=== PATIENT | male | born 1955 | race Caucasian/White ===

== ENCOUNTER → 2018-07-21 | Outpatient (CLI) | payer OTHER ==
[~2018-07-21] MED LIST: ALTACE10 MG PO; ASPIR 8181 MG PO; CARVEDILOL6.25 MG PO; CRESTOR20 MG PO; EPLERENONE25 MG PO; IBUPROFEN 600600 M1 PO; LANSOPRAZOLE30 MG PO; LASIX 20 MG TAB20 MG PO; LEVOTHYROXIN0.112 M1 PO; NORCO 5-325 TA1 EACH PO; PROBIOTIC1 EAC1 PO; TOPAMAX 25 MG T25 M1 PO; VALIUM5 MG PO
== END ==
LOC: CAT 10:41
DX: J32.0 Chronic maxillary sinusitis (principal)

== ENCOUNTER 2018-09-04 05:27 | Day surgery (SDC) | payer OTHER ==
[~2018-09-04] VITALS: Ht 175.3 cm; Wt 87.1 kg
[~2018-09-04 05:27] MED LIST changes: +BRILINTA90 MG PO; +COREG6.25 MG PO; +DEPAKOTE ER500 MG PO; +METFORMIN HCL500 MG PO; +MIDODRINE HCL2.5 M1 PO; +SYNTHROID112 MC1 PO; +TOPAMAX50 MG PO
[2018-09-04 11:24] VITALS: BP 135/80
--- NOTE | 2018-09-08 05:48 | O ---
[facility] [place] [address] OPERATIVE REPORT Name: REMI EMEYR Room #: DEP [facility].#: [id number] Admission: 09/04/18 Attend Phys: Eleazar Walton MD Discharge: 09/04/18 Date of : 51 Report #: [id number] THIS REPORT FOR: //name// CC: Farooq Walton DATE OF SERVICE: 09/04/2018 PREOPERATIVE DIAGNOSIS: Left nasolacrimal duct obstruction. POSTOPERATIVE DIAGNOSIS: Left nasolacrimal duct obstruction. PROCEDURE: Left endoscopic balloon dacryocystoplasty with silicone intubation and monocanalicular stent placement. SURGEON: Eleazar Walton MD. CUSTOMER SUCCESS INTERN: None. ANESTHESIA: General. COMPLICATIONS: None. 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 He presents today for a left endoscopic lacrimal outflow procedure in order to attempt to establish patent tear drainage. Informed consent was obtained to include but not limited to the potential risk for loss of vision, bleeding, infection, failure to improve the problem, and the potential need for further surgery or treatment. DESCRIPTION OF PROCEDURE: The patient was taken to the operating room where general anesthesia was administered. The left medial canthal area and the left lateral wall of the nose were then infiltrated with Xylocaine with epinephrine mixed with Marcaine and Wydase. The patient was subsequently prepped and draped in the usual sterile fashion. The left superior and inferior puncta were then dilated with a punctum dilator. A size 1 Grimaldo probe was then passed through the superior canalicular system down the stenosed nasolacrimal duct into the inferior meatus. The previously placed Afrin-soaked cottonoids were removed from the nose. The nasal vault was then inspected with the video endoscope. The inferior turbinate was deviated medially with the blunt end of [place] periosteal elevator, which allowed access to the inferior recess, which showed the Grimaldo probe in the proper location in the inferior meatus. A size 2 Grimaldo probe was similarly passed through the same tract. A 3 x 15 mm Lacricatheter [address] [address] OPERATIVE REPORT Name: YULY,REMI A Room #: DEP [facility].#: [id number] Admission: 09/04/18 Attend Phys: Eleazar Walton MD Discharge: 09/04/18 Date of : 51 Report #: [id number] was then lubricated with ophthalmic ointment passed through the superior canalicular system down the stenosed nasolacrimal duct into the inferior meatus as confirmed video endoscopically. The balloon was then inflated to 9 atmospheres for 90 seconds at each of 3 locations followed by dynamic inflation cycles to ensure that the entire tract was dilated. The balloon was then vigorously aspirated as it was withdrawn. The tract irrigated well through the superior canalicular system. The inferior punctum was dilated with a double-ended punctum dilator. The inferior canaliculus was occluded at the level of the common canaliculus. Despite several attempts to pass through the common canaliculus through the inferior system, it could not be overtaken. The decision was made to place a monocanalicular stent superiorly. A monocanalicular Allen stent was then passed through the superior canalicular system down the newly dilated nasolacrimal duct where the stylet was retrieved under the inferior turbinate with the video endoscope and a Allen hook. The medium size collarette head was then placed on the eyelid margin. The Allen tube was snipped onto the inferior turbinate. Maxitrol drops were then placed on the eye. The patient was subsequently transported to the recovery area having tolerated the procedure well with no anesthetic or operative complications being noted. <ELECTRONICALLY SIGNED> By: Eleazar Walton MD 09/08/18 [id number] Eleazar Walton MD /nt
== END 2018-09-04 12:48 | disposition home or self-care (01) ==
LOC: OR 05:27 → TBA 05:28 → OR 09:32
DX: H04.552 Acquired stenosis of left nasolacrimal duct (principal); G43.909 Migraine, unspecified, not intractable, without status migrainosus; I10 Essential (primary) hypertension; K21.9 Gastro-esophageal reflux disease without esophagitis; E03.9 Hypothyroidism, unspecified; E11.9 Type 2 diabetes mellitus without complications; E78.5 Hyperlipidemia, unspecified; Z95.5 Presence of coronary angioplasty implant and graft; Z88.8 Allergy status to other drugs, medicaments and biological substances; Z79.82 Long term (current) use of aspirin; Z79.899 Other long term (current) drug therapy; Z79.84 Long term (current) use of oral hypoglycemic drugs; Z95.1 Presence of aortocoronary bypass graft; Z95.810 Presence of automatic (implantable) cardiac defibrillator; Z98.890 Other specified postprocedural states; Z90.49 Acquired absence of other specified parts of digestive tract; Z86.73 Personal history of transient ischemic attack (TIA), and cerebral infarction without residual deficits
CPT/HCPCS: 50010; 50101; 50386; 50398; 51777; 55343; 56528; 62110; 62900; 64037; 70005